=== PATIENT | female | born 1970 | race Caucasian/White ===

== ENCOUNTER 2017-09-06 15:03 | Emergency (ER) | payer OTHER ==
[2017-09-06] MEDS ORDERED: RX INFO: IV CONTRAST WAS GIVEN 1 EACH MISC MISCELLANE PRN (15:29)
[2017-09-06 15:52] LABS: Basophils # (A) 0.1 k/uL (0-0.2); Basophils % (A) 1 %; CH 30.5; CHCM 32.6; Eosinophils # (A) 0.2 k/uL (0-0.7); Eosinophils % (A) 2 %; HGB 14.5 gm/dL (11.4-16.0); Luc # (Auto) 0.19; Luc % (Auto) 2; Lymphocytes # (A) 3.4 k/uL (1.0-4.8); Lymphocytes % (A) 37 %; MCH 30.3 pg (25.0-35.0); MCHC 32.2 g/dL (31.0-37.0); MCV 94.1 fL (80.0-100.0); Monocytes # (A) 0.4 k/uL (0-1.0); Monocytes % (A) 5 %; Neutrophils # (A) 4.8 k/uL (1.3-7.7); Neutrophils % (A) 53 %; RBC 4.78 m/uL (3.80-5.40); RDW 14.6 % (11.5-15.5); WBC (Perox) 8.74
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
[2017-09-06 16:01] LABS: ALT 31 U/L (9-52); AST 22 U/L (14-36); Alkaline Phosphatase 60 U/L (38-126); Anion Gap 6 mmol/L; Blood Urea Nitrogen 9 mg/dL (7-17); Calcium 9.5 mg/dL (8.4-10.2); Carbon Dioxide 23 mmol/L (22-30); Chloride 111 mmol/L (98-107); Glucose 91 mg/dL (74-99); Non-African American GFR(MDRD) >60 (>60 ml/min/1.73 sqM); Potassium 3.9 mmol/L (3.5-5.1); Sodium 140 mmol/L (137-145); Total Bilirubin 0.5 mg/dL (0.2-1.3); Total Protein 7.2 g/dL (6.3-8.2)
[2017-09-06 16:36] VITALS: RESP 18
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
--- NOTE | 2017-09-06 17:14 | XR ---
EXAMINATION TYPE: XR knee complete LT DATE OF EXAM: 09/06/2017 COMPARISON: NONE HISTORY: Knee pain TECHNIQUE: 3 views FINDINGS: I see no fracture nor dislocation. Joint spaces are normal. There is mild spurring on the p atella. There is no sign of knee joint effusion. IMPRESSION: Negative left knee exam
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
[2017-09-06] MEDS ORDERED: KETOROLAC 30 MG/ML 1 ML VIAL IVP STA (17:26)
[2017-09-06 17:51] VITALS: BP 130/66; PULSE 69; TEMP 97.3
== END 2017-09-06 17:50 | disposition home or self-care (01) ==
LOC: EC 15:03
DX: R51 Headache (principal); M54.2 Cervicalgia; R07.9 Chest pain, unspecified; M25.552 Pain in left hip; M25.562 Pain in left knee; V47.5XXA Car driver injured in collision with fixed or stationary object in traffic accident, initial encounter; Y92.410 Unspecified street and highway as the place of occurrence of the external cause
CPT/HCPCS: 36415; 80053; 85025; 73562; 72125; 70450; 71260; 74177; 99284; 96374; J1885; Q9967

== ENCOUNTER → 2018-02-27 | Outpatient (CLI) | payer OTHER ==
--- NOTE | 2018-02-28 07:10 | US ---
EXAMINATION TYPE: US pelvic complete DATE OF EXAM: 02/27/2018 COMPARISON: NONE CLINICAL HISTORY: N92.1 Menorrhagia with irregular cycle. ongoing for 10 years, just now getting back to see doctors, 2 c-sections TECHNIQUE: TA. Transabdominal sonographic images of the pelvis were acquired. Date of LMP: From Nov to February 08 EXAM MEASUREMENTS: Uterus: 10.5 x 6.2 x 4.4 cm Endometrial Stripe: 1.7 cm Right Ovary: 3.6 x 2.6 x 2.4 cm Left Ovary: 1.6 x 1.4 x 1.4 cm *patient did not want TV 1. Uterus: Anteverted wnl 2. Endometrium: thickened 3. Right Ovary: 2.5cm simple cyst 4. Left Ovary: wnl 5. Bilateral Adnexa: wnl 6. Posterior cul-de-sac: wnl IMPRESSION: 1. Simple appearing right ovarian cyst may reflect functional ovarian cysts. 2. Mildly thickened endometrium.
== END | disposition home or self-care (01) ==
LOC: RADUSWWP 15:31
PROVIDERS: ATTEND Obstetrics & Gynecology
DX: R93.8 Abnormal findings on diagnostic imaging of other specified body structures (principal); N92.1 Excessive and frequent menstruation with irregular cycle
CPT/HCPCS: 76856

== ENCOUNTER → 2018-04-23 | Outpatient (CLI) | payer OTHER ==
[2018-04-23 15:36] LABS: Basophils # (A) 0.1 k/uL (0-0.2); Basophils % (A) 1 %; Eosinophils # (A) 0.4 k/uL (0-0.7); Eosinophils % (A) 4 %; HCT 40.7 % (34.0-46.0); HGB 13.3 gm/dL (11.4-16.0); Lymphocytes # (A) 3.6 k/uL (1.0-4.8); Lymphocytes % (A) 44 %; MCH 30.2 pg (25.0-35.0); MCHC 32.6 g/dL (31.0-37.0); MCV 92.8 fL (80.0-100.0); Mean Platelet Volume 7.2; Monocytes # (A) 0.4 k/uL (0-1.0); Monocytes % (A) 5 %; Neutrophils # (A) 3.6 k/uL (1.3-7.7); Neutrophils % (A) 43 %; Platelet Count 276 k/uL (150-450); RBC 4.39 m/uL (3.80-5.40); RDW 13.1 % (11.5-15.5); WBC 8.3 k/uL (3.8-10.6)
== END | disposition home or self-care (01) ==
LOC: LABPAT 15:01
PROVIDERS: ATTEND Obstetrics & Gynecology
DX: Z01.812 Encounter for preprocedural laboratory examination (principal)
CPT/HCPCS: 36415; 85025

== ENCOUNTER 2018-04-29 05:54 | Day surgery (SDC) | payer OTHER ==
[2018-04-22 12:59] VITALS: BMI 22.6
--- NOTE | 2018-04-28 16:36 | P.HPOB ---
History of Present Illness H&P Date: 04/28/18 Chief Complaint: Menorrhagia Patient is a 48-year-old female with heavy vaginal bleeding and thickened endometrium on ultrasound. She is scheduled for a D&C with hysteroscopy Milka to alleviate her symptoms. Symptoms have been going on for almost 10 years and the symptoms seem to be getting worse over the last 1-2 years. She is unable to function well due to the heavy bleeding and requests a more permanent solution. Risks/benefits and alternatives reviewed with patient in detail and all questions are answered for her prior to proceeding to the operating room. Past Medical History Past Medical History: COPD, Skin Disorder Additional Past Medical History / Comment(s): Psoriasis. latex aggravates Psoriasis but is not allergic to Latex. was told she has beginnings of COPD. has no meds for it and has not experienced any problems with it. History of Any Multi-Drug Resistant Organisms: None Reported Past Surgical History: Section Past Anesthesia/Blood Transfusion Reactions: Previous Problems w/ Anesthesia, Family History of Problems w/ Anesthesia Additional Past Anesthesia/Blood Transfusion Reaction / Comment(s): Imboden pain during ceserean section, had spinal. Mother had stroke during her last surgery. Mother has "acts bizarre for days after having general anesthesia." Past Psychological History: ADD/ADHD, Anxiety, Depression Smoking Status: Current every day smoker Past Alcohol Use History: None Reported Additional Past Alcohol Use History / Comment(s): Has been smoking since 16 yrs old, 1PPD. Trying to quit, down to 7-8 cigarettes per day. Past Drug Use History: None Reported - Past Family History Mother Family Medical History: CVA/TIA Medications and Allergies Home Medications Medication Instructions Recorded Confirmed Type Cholecalciferol [Vitamin D3] 1,000 unit PO DAILY 09/06/17 04/22/18 History Magnesium 200 mg PO Q48H 09/06/17 04/22/18 History Vitamin B Complex 1 tab PO DAILY 09/06/17 04/22/18 History Zinc 50 mg PO DAILY 09/06/17 04/22/18 History Cod Liver Oil 1 each PO Q72H 04/22/18 04/22/18 History LORazepam [Ativan] 1 mg PO TID PRN 04/22/18 04/22/18 History Methylphenidate HCl [Ritalin] 10 mg PO QAM 04/22/18 04/22/18 History Allergies Allergy/AdvReac Type Severity Reaction Status Date / Time amoxicillin Allergy Rash/Hives Verified 04/22/18 12:38 egg Allergy Rash/Hives Verified 04/22/18 12:38 Exam Osteopathic Statement: *. No significant issues noted on an osteopathic structural exam other than those noted in the History and Physical/Consult. - OBG Physical Exam Breast: both: normal (no masses) Abdomen: bowel sounds normal, no diffuse tenderness, no bruit present, no guarding noted, no hepatomegaly, no splenomegaly, no mass Vulva: both: normal Vagina: normal moisture, no discharge Cervix: no lesion, no discharge Uterus: normal size, normal contour Adnexa: both: normal Anus/Rectum: normal perianal skin, no rectal mass, no hemorrhoids, heme negative
[~2018-04-29 05:54] MED LIST: LACTATED RINGERS 1,000 ML IV SCH; LIDOCAINE 1% 20 ML VIAL (10MG/ML) FOR IV START INTRADERMA PRN; ONDANSETRON 4 MG/2 ML VIAL IVP ONE; Pre Op ABX Message 1 EACH MISC MISCELLANE ONE
[2018-04-29] MEDS ORDERED: PROPOFOL 10 MG/ML 20 ML VIAL IV ONE (07:27)
[2018-04-29] MEDS ORDERED: MIDAZOLAM 2 MG/2 ML VIAL ONE (07:27)
[2018-04-29] MEDS ORDERED: LIDOCAINE 1% INJ 10MG/ML (20 ML MDV) ONE (07:27)
[2018-04-29] MEDS ORDERED: fentaNYL (PF) 50 MCG/ML 2 ML AMP ONE (07:27)
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
[2018-04-29 08:14] VITALS: TEMP 97.2
[2018-04-29] MEDS: HYDROmorphone 0.5 MG/0.5 ML SYRINGE IVP PRN ×2 (08:15→08:39)
[2018-04-29] MEDS ORDERED: KETOROLAC 30 MG/ML 1 ML VIAL IVP ONE (08:20)
[2018-04-29 08:48] VITALS: RESP 16
[2018-04-29 09:42] VITALS: BP 109/72; PULSE 66
== END 2018-04-29 10:27 | disposition home or self-care (01) ==
LOC: OR 05:54
PROVIDERS: ATTEND Obstetrics & Gynecology
DX: N84.0 Polyp of corpus uteri (principal); N92.0 Excessive and frequent menstruation with regular cycle; J44.9 Chronic obstructive pulmonary disease, unspecified; L40.9 Psoriasis, unspecified; F90.9 Attention-deficit hyperactivity disorder, unspecified type; F41.9 Anxiety disorder, unspecified; F32.9 Major depressive disorder, single episode, unspecified; F17.210 Nicotine dependence, cigarettes, uncomplicated; Z79.899 Other long term (current) drug therapy; Z88.0 Allergy status to penicillin; Z91.012 Allergy to eggs; Z91.040 Latex allergy status
CPT/HCPCS: 81025; 88305; 58563; J2250; J2405; J2001; J3010; J1885; J2704; J1170